=== PATIENT | male | born 1970 | race Caucasian/White ===

== ENCOUNTER 2024-08-22 17:58 | Emergency (ER) | payer BC | END 2024-08-22 18:30 | LOC: NAV ERS 17:58 | DX: F10.129 Alcohol abuse with intoxication, unspecified (principal); F17.220 Nicotine dependence, chewing tobacco, uncomplicated; V89.2XXA Person injured in unspecified motor-vehicle accident, traffic, initial encounter | CPT/HCPCS: 99284 ==